=== PATIENT | female | born 1955 | race Caucasian/White ===

== ENCOUNTER → 2017-01-22 | Outpatient (CLI) | payer OTHER | LOC: FIMAGING 07:25 | DX: Z12.31 Encounter for screening mammogram for malignant neoplasm of breast (principal) | CPT/HCPCS: G0202 ==

== ENCOUNTER → 2017-02-01 | Outpatient (CLI) | payer OTHER | LOC: FIMAGING 08:58 | DX: Z12.39 Encounter for other screening for malignant neoplasm of breast (principal); R92.2 Inconclusive mammogram | CPT/HCPCS: G0206 ==

== ENCOUNTER → 2018-02-03 | Outpatient (CLI) | payer OTHER | LOC: FIMAGING 07:48 | PROVIDERS: ATTEND Obstetrics & Gynecology Gynecology | DX: Z12.31 Encounter for screening mammogram for malignant neoplasm of breast (principal) ==

== ENCOUNTER → 2019-02-04 | Outpatient (CLI) | payer OTHER | LOC: FIMAGING 07:55 | DX: Z12.31 Encounter for screening mammogram for malignant neoplasm of breast (principal) ==